=== PATIENT | female | born 1935 | race Caucasian/White ===

== ENCOUNTER 2018-02-03 00:48 | Outpatient (CLI) | payer MEDICARE, OTHER | END 2018-02-03 00:49 | disposition short-term general hospital (02) | LOC: EMS 00:48 | PROVIDERS: ATTEND Surgery | DX: R51 Headache (principal); R53.1 Weakness; R46.4 Slowness and poor responsiveness | CPT/HCPCS: A0425; A0429; A0888 ==

== ENCOUNTER 2018-03-17 06:22 | Outpatient (CLI) | payer MEDICARE, OTHER | END 2018-03-17 06:23 | disposition EMS.NT | LOC: EMS 06:22 | PROVIDERS: ATTEND Surgery | DX: R51 Headache (principal) ==

== ENCOUNTER 2018-11-16 14:27 | Outpatient (CLI) | payer MEDICARE, OTHER | END 2018-11-16 14:28 | disposition short-term general hospital (02) | LOC: EMS 14:27 | PROVIDERS: ATTEND Surgery | DX: R29.810 Facial weakness (principal); R53.1 Weakness; R47.9 Unspecified speech disturbances ==

== ENCOUNTER 2019-12-21 03:04 | Outpatient (CLI) | payer MEDICARE, OTHER | END 2019-12-21 03:05 | disposition short-term general hospital (02) | LOC: EMS 03:04 | PROVIDERS: ATTEND Surgery | DX: R04.0 Epistaxis (principal) | CPT/HCPCS: A0425; A0429 ==

== ENCOUNTER 2022-05-05 08:00 | Outpatient (CLI) | payer MEDICARE, OTHER | END 2022-05-05 23:59 | disposition home or self-care (01) | LOC: LAB.R 08:00 | PROVIDERS: ATTEND Podiatrist | DX: L89.892 Pressure ulcer of other site, stage 2 (principal) | CPT/HCPCS: 87070; 87077; 87205 ==

== ENCOUNTER 2022-08-16 11:24 | Outpatient (CLI) | payer MEDICARE, OTHER ==
--- NOTE | 2022-08-16 12:15 | XRAY Report ---
PROCEDURE: Toe(s) RT INDICATIONS: PAINFUL 2ND DIGIT RT TECHNIQUE: 3 views of the second toe(s) acquired. COMPARISON: None FINDINGS: Bones: No fractures or dislocations. No suspicious bony lesions. Hammertoe deformities of the first through fifth phalanges. Soft tissues: No suspicious soft tissue densities. IMPRESSION: No acute bony abnormality. Hammertoe deformities of the first through fifth phalanges. Reviewed by: Enrrique Hill on 08/16/2022 11:14 AM MAVIS Approved by: Enrrique Hill on 08/16/2022 11:14 AM MAVIS Station ID: [id number]
== END 2022-08-16 11:25 | disposition home or self-care (01) ==
LOC: DI 11:24
PROVIDERS: ATTEND Podiatrist
DX: M20.41 Other hammer toe(s) (acquired), right foot (principal)

== ENCOUNTER 2023-07-27 17:22 | Outpatient (CLI) | payer MEDICARE, OTHER | END 2023-07-27 23:59 | disposition short-term general hospital (02) | LOC: EMS 17:22 | DX: R41.82 Altered mental status, unspecified (principal); R06.82 Tachypnea, not elsewhere classified; W18.39XA Other fall on same level, initial encounter; Y93.01 Activity, walking, marching and hiking; Y92.008 Other place in unspecified non-institutional (private) residence as the place of occurrence of the external cause; Z79.01 Long term (current) use of anticoagulants | CPT/HCPCS: A0425; A0429 ==